=== PATIENT | male | born 1965 | race Caucasian/White ===

== ENCOUNTER 2022-11-01 12:22 | Emergency (ER) | payer MEDICAID ==
[~2022-11-01] VITALS: Ht 175.3 cm; Wt 132.0 kg
[2022-11-01 13:11] LABS: EOSINOPHILS % 1.8 % (0.0-5.0); HEMATOCRIT. 50.9 % (42.0-52.0); HEMOGLOBIN. 17.4 g/dL (14.0-18.0); LYMPHOCYTES % 18.8 % (20.0-50.0); MEAN CORPUSCULAR HEMOGLOBIN 30.8 pg (28.0-32.0); MEAN CORPUSCULAR VOLUME 90.3 fL (80.0-94.0); MEAN PLATELET VOLUME 8.4 fl (7.4-10.4); MONOCYTES % 9.2 % (2.0-8.0); NEUTROPHILS % 69.2 % (40.0-76.0); PLATELET 243 x1000/uL (130-400); RED BLOOD CELL COUNT 5.64 mill/uL (4.7-6.1); RED CELL DISTRIBUTION WIDTH 14.3 % (11.6-14.6)
[2022-11-01] MEDS ORDERED: ASPIRIN 81MG TABLET PO ONE (13:15)
[2022-11-01 13:16] LABS: CHLORIDE 99 mEq/L (98-107)
[2022-11-01 13:22] LABS: INR 1.1; PROTHROMBIN TIME 11.5 sec (9.6-11.0)
[2022-11-01 14:36] LABS: D-DIMER 0.34 mg/L FEU (<0.50); PARTIAL THROMBOPLASTIN TIME 29.6 sec (23.4-31.0)
[2022-11-01 17:00] VITALS: BP 127/86
== END 2022-11-01 19:15 | disposition left against medical advice (07) ==
LOC: ER 16:39 → CANBEDREQ 11-03 16:09
DX: R06.02 Shortness of breath (principal); I48.91 Unspecified atrial fibrillation; E11.9 Type 2 diabetes mellitus without complications; R00.2 Palpitations
CPT/HCPCS: 36415; 71045; 78582; 80053; 83735; 83880; 84443; 84484; 85025; 85379; 85610; 85730; 93005; 93970; 99285; A9540; A9558; Z7610

== ENCOUNTER 2023-02-25 19:49 | Emergency (ER) | payer MEDICAID ==
[~2023-02-25] VITALS: Ht 172.7 cm; Wt 139.0 kg
[2023-02-25 19:51] VITALS: BP 150/97; PULSE 87; RESP 16; TEMP 98.9; O2SAT 98
[2023-02-25 20:42] LABS: BASOPHILS % 0.6 % (0.0-2.0); EOSINOPHILS % 3.1 % (0.0-5.0); HEMATOCRIT. 46.8 % (42.0-52.0); HEMOGLOBIN. 15.7 g/dL (14.0-18.0); MEAN CORPUSCULAR HEMOGLOBIN 30.6 pg (28.0-32.0); MEAN CORPUSCULAR VOLUME 91.2 fL (80.0-94.0); MEAN PLATELET VOLUME 8.9 fl (7.4-10.4); MONOCYTES % 11.5 % (2.0-8.0); NEUTROPHILS % 67.8 % (40.0-76.0); PLATELET 203 x1000/uL (130-400); RED BLOOD CELL COUNT 5.14 mill/uL (4.7-6.1)
[2023-02-25 20:54] LABS: CHLORIDE 103 mEq/L (98-107)
== END 2023-02-26 00:52 | disposition home or self-care (01) ==
LOC: ER 19:49
DX: R06.02 Shortness of breath (principal); I48.91 Unspecified atrial fibrillation; E11.9 Type 2 diabetes mellitus without complications
CPT/HCPCS: 80053; 83880; 85025; 85379; 84484; 36415; 71045; 93005; 99284; Z7610 ×2